=== PATIENT | female | born 1980 | race Caucasian/White ===

== ENCOUNTER 2021-10-09 14:02 | Outpatient (CLI) | payer OTHER | END 2021-10-09 14:03 | disposition home or self-care (01) | LOC: CSHULT 14:02 | PROVIDERS: ATTEND Student in an Organized Health Care Education/Training Program | DX: R10.2 Pelvic and perineal pain (principal); R93.89 Abnormal findings on diagnostic imaging of other specified body structures; N88.8 Other specified noninflammatory disorders of cervix uteri; N83.202 Unspecified ovarian cyst, left side | CPT/HCPCS: 76856 ==

== ENCOUNTER 2022-03-25 20:19 | Emergency (ER) | payer OTHER ==
[2022-03-25] MEDS ORDERED: Lidocaine 1% (PF) 30 ML VIAL ONE (20:48)
[2022-03-25] MEDS ORDERED: Bacitracin 1 PK ONE (21:46)
== END 2022-03-25 21:49 | disposition home or self-care (01) ==
LOC: CSHERS 20:19
DX: S61.217A Laceration without foreign body of left little finger without damage to nail, initial encounter (principal); W25.XXXA Contact with sharp glass, initial encounter
CPT/HCPCS: 12001; J2001